=== PATIENT | female | born 1935 | race Caucasian/White ===

== ENCOUNTER 2018-08-09 13:05 | Inpatient (IN) | payer MEDICARE, OTHER, MEDICAID ==
[~2018-08-09] VITALS: Ht 162.6 cm; Wt 63.5 kg
[2018-08-09] MEDS ORDERED: SIMVASTATIN20 MG PO (14:07)
[2018-08-09] MEDS ORDERED: DIGOXIN0.125 MG PO (14:07)
[2018-08-09] MEDS ORDERED: LEVOTHYROXIN75 MCG PO (14:08)
[2018-08-09] MEDS ORDERED: OMEPRAZOLE20 M2 PO (14:08)
[2018-08-09] MEDS ORDERED: CALCIUM + D PO (14:09)
[2018-08-09] MEDS ORDERED: MULTI VIT PO (14:09)
[2018-08-09] MEDS ORDERED: ASPIRIN81 MG PO (14:09)
[2018-08-09] MEDS ORDERED: VITAMIN C500 MG PO (14:09)
[2018-08-09] MEDS ORDERED: FISH OIL1000 MG PO (14:10)
[2018-08-09] MEDS ORDERED: PRESERVISION ARED1 PO (14:10)
[2018-08-09] MEDS ORDERED: METFORMIN500 MG PO (14:11)
[2018-08-13] VITALS (7 sets, daily range): BP systolic 129–144; BP diastolic 61–80
--- NOTE | 2018-08-13 14:13 | NUR ---
PT TRANSPORTED TO [facility] VIA STRETCHER ACCOMPIANED BY OR STAFF. VS DONE. PT ASSESSMENT COMPLETE. PT VERY DROWSY AT THIS TIME. RESP EVEN AND UNLABORED. LUNG SOUNDS CLEAR. O2 @2L ON PT. INCENTIVE SPIROMETER AT BEDSIDE. BOWEL SOUNDS ACTIVE X4. STRONG RADIAL AND PEDAL PULSES. #20 LH LR @100. SITE APPEARS HEALTHY. RT SHOULDER POST OP. DRESSING,CDI. SWELLING TO RT SHOULDER NOTED. ICE APPLIED. PT DENIES ANY PAIN OR NEEDS. POC DISCUSSED. SAFETY PRECAUTIONS IN PLACE. CALL LIGHT IN REACH. WILL CONTINUE TO MONITOR
--- NOTE | 2018-08-13 16:04 | NUR ---
PT SLEEPING IN BED. RESP EVEN AND UNLABORED. O2@2L ON PT. PT DENIES ANY PAIN JUST WANTING TO REST AT THIS TIME. SLING TO RT ARM IN PLACE. CALL LIGHT IN REACH. WILL CONTINUE TO MONITOR
--- NOTE | 2018-08-13 20:00 | NUR ---
PATIENT RESTING IN BED WITH HOB ELEVATED AND O2 VIA NASAL CNNULA IN PLACE AT 2LPM. PATIENT IS AWAKE ALERT AND ORIENTEDX3 AT THIS TIME. PATIENT WITH OCC NON-PRODUCTIVE COUGH. DRESSING TO RIGHT SHOULDER IS CDI WITH RIGHT ARM IN SLING. CMS TO RIGHT FINGERS ARE WNL. MEDICATED FOR PAIN WITH PERCOCET 10/325MG ORDERED. ANCEF HUNG SCHEDULED. IVF LR PATENT AND TO INFUSE AT 100CC/HR. PATIENT IS ONLY TAKING SIPS OF PO FLUIDS AT THIS TIME. IV SITE TO LEFT HAND INTACT AND APPEARS HEALTHY WITH GOOD BLOOD RETURN. SITE REDRESSED AND J-LOOP APPLIED. DILSHAD SCD'S IN PLACE. ATTEMPT TO INSTRUCT PATIENT WITH USE OF IS-POOR EFFORT. WILL NEED REINFORCEMENT. SAFETY PRECAUTIONS REINFORCED. BED ALARM IN PLACE FOR PATIENT SAFETY. ICE PACK TO RIGHT SHOULDER IN [PLACE. CALL LIGHT IN REACH. WILL CONT TO MONITOR.
--- NOTE | 2018-08-14 | NUR ---
PATIENT RESTING IN BED AT THIS TIME WITH HOB ELEVATED AND O2 VIA NASAL CANNULA IN PLACE. EYES CLOSED AND RESP ARE EVEN AND UNLABORED. OCC NON-PRODUCTIVE COUGH. IVF PATENT AND INFUSING VIA LEFT HAND SITE AT 100CC/HR. CALL LIGHT IN REACH. WILL CONT TO MONITOR.
[2018-08-14 00:25] VITALS: BP 125/66
[2018-08-14 04:00] VITALS: BP 127/58
--- NOTE | 2018-08-14 04:38 | NUR ---
APPEARS SLEEPING WITH O2 VIA NASAL CANNULA IN PLACE. IVF D/ALHAJI AND IV SITE SALINE LOCKED. RIGHT SHOULDER DRESSING IS CDI AT THIS TIME WITH SLING IN PLACE TO RIGHT ARM. BED ALARM IN PLACE FOR PATIENT SAFETY. CALL LIGHT IN REACH. WILL CONT TO MONITOR.
[2018-08-14 05:23] LABS: IMMATURE GRANULOCYTES 0.6 % (0.0-5.0); MEAN CELL VOLUME 96.5 fL CALC (80.0-100.0); MEAN CORPUSCULAR HGB 31.7 pG CALC (26.0-32.0); MEAN CORPUSCULAR HGB CONC 32.9 g/L CALC (32.0-36.0); NEUT# 8.96 thou/uL (2.00-7.15); RED BLOOD COUNT 3.72 mill/uL (4.20-5.60); RED CELL DISTRI WIDTH 12.8 % (11.5-15.5)
[2018-08-14 05:29] LABS: HEMATOCRIT 35.9 % (37.0-47.0); HEMOGLOBIN 11.8 g/dl (12.0-16.0)
[2018-08-14 05:50] LABS: ALKALINE PHOSPHATASE 40 u/l (38-126); ANION GAP 11 (6-22 (CALC)); BILIRUBIN, TOTAL 0.5 mg/dL (0.0-1.4); BUN 11 mg/dL (8-23); BUN/CREATININE RATIO 21 (12-20 (CALC)); CARBON DIOXIDE 26 mmol/l (22-30); CHLORIDE 106 mmol/l (95-108); CREATININE 0.5 mg/dL (0.5-1.0); GFR > 60 ML/MIN (>=60 (CALC)); GFR FOR AFR.AMER. > 60 ML/MIN (>=60 (CALC)); MAGNESIUM 1.8 mg/dL (1.6-2.3); POTASSIUM 4.4 mmol/l (3.5-5.1); SGOT/AST 27 u/l (9-36); SODIUM 138 mmol/l (137-146); TOTAL PROTEIN 6.1 g/dL (6.3-8.2)
[2018-08-14 05:51] LABS: ALBUMIN 3.3 g/dL (3.2-5.0)
--- NOTE | 2018-08-14 07:05 | NUR ---
PT REPORT RECIEVED FROM JUD MILLER. PT ON BSC AT THIS TIME. AIDE BY BEDSIDE. CALL LIGHT IN REACH. WILL CONTINUE TO MONITOR.
[2018-08-14 07:45] VITALS: BP 102/60
--- NOTE | 2018-08-14 07:45 | NUR ---
ASSESSMENT COMPLETE. PT APPEARS DROWSY, BUT A/O X3. SPEECH IS CLEAR, VOICE RASPY. RESP EVEN AND UNLABORED. LUNG SOUNDS CLEAR. O2 @2L ON PT. ENCOURAGED USE OF INCENTIVE SPIROMETER. WILL CONTINUE TO REIFORCE. BOWEL SOUNDS ACTIVE X4. STRONG RADIAL AND PEDAL PULSES. #20 LH LR @100. SITE APPEARS HEALTHY. PT POST OP DAY 1 RT SHOULDER. DRESSING,CDI. SLING IN PLACE. SWELLING NOTED TO RT SHOULDER. ICE APPLIED. PT C/O ACHING PAIN TO RT SHOULDER 10 OUT OF 10 ON PIN SCALE. MEDICATION ADMINISTRATION AND PAIN SCALE MONITORING DISCUSSED. PT STATES UNDERSTANDING BUT INTRANET DEVELOPER WILL REINFORCE NEEDED. MEDICATED W/ TWO 325 PERCOCET PO. PT DENIES ANY FURTHER NEEDS. POC DISCUSSED. SAFETY PRECAUTIONS IN PLACE. CALL LIGHT IN REACH. WILL CONTINUE TO MONITOR.
--- NOTE | 2018-08-14 10:10 | NUR ---
DR. RICO IN TO SEE PT
[2018-08-14 11:24] VITALS: BP 106/61
--- NOTE | 2018-08-14 11:26 | NUR ---
DR. RICO IN TO SEE PT
--- NOTE | 2018-08-14 12:34 | NUR ---
PT SITTING IN RECLINER EATING LUNCH. NO C/O PAIN. RESP EVEN AND UNLABORED. SLING TO RT SHOULDER IN PLACE. CALL LIGHT IN REACH. WILL CONTINUE TO MONITOR
--- NOTE | 2018-08-14 13:45 | NUR ---
PT ASSESSMENT WAS ATTEMPTED TODAY. HOWEVER, PT FIRMLY DECLINED STATING THAT SHE WOULD NOT DO ANYTHING AND THAT SHE WANTED TO BE PLACED IN A REHAB. EXPLAINED TO PT THE NEED TO COMPLETE THE EVALUATION FOR HER PLACEMENT, STILL REFUSED TO COOPERATE.
--- NOTE | 2018-08-14 14:10 | NUR ---
Spoke to patient about medications, patient had no questions
--- NOTE | 2018-08-14 15:04 | NUR ---
PT C/O ACHING RT SHOULDER PAIN 10 OUT OF 10 ON PAIN SCALE. MEDICATED W/ TWO PERCOCET PO. ENCOURAGED PO FLUIDS. PT DRINK HALF A CUP OF WATER. PT DEMONSTARTED USE OF THE INCENTIVE SPIROMETER. USAGE OF INCENTIVE SPIROMETER IS GETTING BETTER. PT FALLING BACK TO SLEEP. CALL LIGHT IN REACH. WILL CONTINUE TO MONITOR
--- NOTE | 2018-08-14 15:39 | NUR ---
PT RESTING IN BED, PT STATES PAIN HAS DECREASED TO A 4 OUT OF 10 ON PAIN SCALE. ICE APPLIED TO RT SHOULDER. PT FALS BACK ASLEEP. RESP EVEN AND UNLABORED. CALL LIGHT IN REACH. WILL CONTINUE TO MONITOR.
[2018-08-14 15:41] VITALS: BP 100/61
[2018-08-14 18:58] VITALS: BP 115/67
--- NOTE | 2018-08-14 19:45 | NUR ---
PATIENT RESTING IN BED WITH HOB ELEVATED AND O2 VIA NASAL CANNULA IN PLACE. PATIENT IS AWAKE ALERT AND ORIENTEDX3 BUT SEEMS A LITTLE SLOW ON THE RESPONCES IV SITE TO LEFT HAND INTACT AND APPEARS HEALTHY AT THIS TIME. ICE PACK TO RIGHT SHOULDER-CMS TO RIGHT FINGERS WNL. ENCOURAGE USE OF IS BUT PATIENT CONT TO HAVE POOR EFFORT EVEN WITH CONSTANT QUES. LUNGS ARE CLEAR BUT DIMINISHED-SHALLOW BREATHING. ENCOURAGED PO FLUIDS BUT ONLY TAKING SIPS WHEN OFFERED. SAFETY PRECAUTIONS REINFORCED. CALL LIGHT IN REACH. WILL CONT TO MONITOR.
[2018-08-15 00:09] VITALS: BP 138/76
--- NOTE | 2018-08-15 02:16 | NUR ---
APPEARS SLEEPING AT THIS TIME WITH HOB ELEVATED AND O2 VIA NASAL CANNULA IN PLACE. EYES CLOSED AND RESP ARE EVEN AND UNLABORED. CALL LIGHT IN REACH. WILL CONT TO MONITOR.
[2018-08-15 04:46] VITALS: BP 124/76
--- NOTE | 2018-08-15 04:52 | NUR ---
PATIENT MAX ASSIST TO BSC TO VOID 200CC OF YESENIA URINE. MAX ASSIST BACK TO BED. O2 VIA NASAL CANNULA IN PLACE. INCISION LINE TO RIGHT SHOULDER INTACT AND WELL APPROXIMATED-NO DRAINAGE, SLIGHT SWELLING ONLY. DERMABOND INTACT. CMS TO RIGHT FINGERS WNL. PATIENT APPEARS TO BE HAVING SOME WORD FINDING DIFFICULTY. HAND GRASP ARE WEAK DILSHAD. TAKING ONLY SIPS OF FLUIDS THROUGH THE NIGHT. SAFETY PRECAUTIONS REINFORCED. CALL LIGHT IN REACH. WILL CONT TO MONITOR
[2018-08-15 05:06] LABS: HEMATOCRIT 35.9 % (37.0-47.0); HEMOGLOBIN 11.7 g/dl (12.0-16.0); IMMATURE GRANULOCYTES 0.4 % (0.0-5.0); MEAN CORPUSCULAR HGB 31.6 pG CALC (26.0-32.0); MEAN CORPUSCULAR HGB CONC 32.6 g/L CALC (32.0-36.0); NEUT# 8.88 thou/uL (2.00-7.15); RED BLOOD COUNT 3.7 mill/uL (4.20-5.60); RED CELL DISTRI WIDTH 12.8 % (11.5-15.5)
[2018-08-15 05:24] LABS: ALBUMIN 3.3 g/dL (3.2-5.0); ALKALINE PHOSPHATASE 51 u/l (38-126); ANION GAP 11 (6-22 (CALC)); BILIRUBIN, TOTAL 0.7 mg/dL (0.0-1.4); BUN 12 mg/dL (8-23); BUN/CREATININE RATIO 24 (12-20 (CALC)); CARBON DIOXIDE 28 mmol/l (22-30); CHLORIDE 103 mmol/l (95-108); CREATININE 0.5 mg/dL (0.5-1.0); GFR > 60 ML/MIN (>=60 (CALC)); GFR FOR AFR.AMER. > 60 ML/MIN (>=60 (CALC)); POTASSIUM 4.6 mmol/l (3.5-5.1); SGOT/AST 45 u/l (9-36); SODIUM 137 mmol/l (137-146); TOTAL PROTEIN 6.2 g/dL (6.3-8.2)
--- NOTE | 2018-08-15 07:00 | NUR ---
SHIFT CHANGE REPORT FROM ZHEN, PT AWAKE AND ALERT, VERY SLOW IN RESPONDING TO QUESTIONS, UNABLE TO RATE PAIN LEVEL ON 1-10 SCALE BUT STATES "IT HURTS A LITTLE", ABLE TO STATE MONTH AND DATE OF BUT NOT YEAR. NEEDS MUCH CUEING AND ASSISTANCE FOR MEALS SHE CONTINUOUSLY PUTS AN EMPTY FORK IN HER MOUTH AND CHEWS IF THERE IS FOOD IN HER MOUTH WHEN THERE IS ACTUALLY NONE, UNABLE TO FILL FORK/SPOON WITHOUT HELP, WILL CONTINUE TO MONITOR.
--- NOTE | 2018-08-15 07:10 | NUR ---
REPORT RECEIVED FROM JUD FONTAINE; PT LAYING IN BED AWAKE, BUT SLOW TO RESPOND TO QUESTIONS; RESP EVEN AND UNLABORED.
[2018-08-15 08:58] VITALS: BP 126/76
--- NOTE | 2018-08-15 10:38 | NUR ---
PT AT IN ROOM TO WORK WITH PT.
--- NOTE | 2018-08-15 11:03 | NUR ---
PT LAYING AWAKE IN BED; PT A/O X3; PT VERY SLOW TO RESPOND TO QUESTIONS; RESP EVEN AND UNLABORED; LUNGS CLEAR; 02 AT 2L NC; EYES SLUGGISH; RADIAL AND PEDAL PULSES STRONG; ABD FIRM, HYPOACTIVE BS; R SHOULDER DRESSING INTACT, WARM TO TOUCH, SLIGHTLY SWOLLEN; #20LH FLUSHED FREELY, SITE APPEARS HEALTHY; R SHOULDER ELEVATED ON A PILLOW; SAFETY PRECAUTION REINFORCED; WILL CONTINUE TO MONITOR.
--- NOTE | 2018-08-15 12:04 | NUR ---
PT LAYING IN BED AWAKE, WITH HOB ELEVATED, TRYING TO EAT LUNCH; NO ACUTE CHANGE NOTED; O2 REMAIN IN PLACE; SAFETY PRECAUTION REINFORCED. WILL CONTINUE TO MONITOR.
--- NOTE | 2018-08-15 12:44 | NUR ---
DR CORTES AT BEDSIDE TO DISCUSS POC.
[2018-08-15 16:00] VITALS: BP 141/83
--- NOTE | 2018-08-15 16:17 | NUR ---
PT REMAINS IN BED, FAMILY MEMBERS AT BEDSIDE; NO ACUTE CHANGES IN CONDITION; RESP EVEN AND UNLABORED; PT VOICED NO CONCERNS; VITALS STABLE; WILL CONTINUE TO MONITOR.
--- NOTE | 2018-08-15 17:50 | NUR ---
MEDICATED WITH 1 PERCOCET FOR PAIN 7/10 IN SHOULDER; PT SITTING UP IN BED TRYING TO EAT SUPPER.
[2018-08-15 18:43] VITALS: BP 135/78
--- NOTE | 2018-08-15 19:54 | NUR ---
PATIENT SITTING UP IN BED WITH EYES CLOSED AND O2 VIA NASAL CANNULA IN PLACE. APPEARS SLEEPING. RESP ARE EVEN AND UNLABORED. IV SITE TO LEFT HAND IS INTACT AND APPEARS HEALTHY AT THIS TIME. RIGHT SHOULDER INCISION IS INTACT AND WELL APPROXIMATED-NO DRAINAGE NOTED. APPEARS HEALTHY WITH ONLY SLIGHT SWELLING. BED ALARM IN PLACE FOR PATIENT SAFETY. CALL LIGHT IN REACH. WILL CONT TO MONITOR.
--- NOTE | 2018-08-16 | NUR ---
PATIENT APPEARS SLEEPING AT THIS TIME WITH HOB ELEVATED AND EYES CLOSED. RESP ARE EVEN AND UNLABORED. O2 VIA NASAL CANNULA IN PLACE. CALL LIGHT IN REACH. WILL CONT TO MONITOR.
[2018-08-16 00:10] VITALS: BP 135/84
[2018-08-16 03:51] VITALS: BP 132/78
[2018-08-16 05:12] LABS: HEMATOCRIT 35.6 % (37.0-47.0); HEMOGLOBIN 11.6 g/dl (12.0-16.0); IMMATURE GRANULOCYTES 0.6 % (0.0-5.0); MEAN CELL VOLUME 96.7 fL CALC (80.0-100.0); MEAN CORPUSCULAR HGB 31.5 pG CALC (26.0-32.0); MEAN CORPUSCULAR HGB CONC 32.6 g/L CALC (32.0-36.0); NEUT# 7.46 thou/uL (2.00-7.15); RED BLOOD COUNT 3.68 mill/uL (4.20-5.60); RED CELL DISTRI WIDTH 12.7 % (11.5-15.5)
--- NOTE | 2018-08-16 05:21 | NUR ---
PATIENT VOIDING DARK YESENIA URINE ON BEDPAN-REFUSING TO GET OOB TO THE BSC. C/O RIGHT SHOULDER PAIN. MEDICATED WITH PERCOCET 10/325MG PO FOR PAIN. SAFETY PRECAUTIONS REINFORCED. CALL LIGHT IN REACH. WILL CONT TO MONITOR.
[2018-08-16 05:27] LABS: ALBUMIN 3.2 g/dL (3.2-5.0); ALKALINE PHOSPHATASE 60 u/l (38-126); ANION GAP 11 (6-22 (CALC)); BILIRUBIN, TOTAL 0.7 mg/dL (0.0-1.4); BUN 13 mg/dL (8-23); BUN/CREATININE RATIO 27 (12-20 (CALC)); CARBON DIOXIDE 29 mmol/l (22-30); CHLORIDE 101 mmol/l (95-108); CREATININE 0.5 mg/dL (0.5-1.0); GFR > 60 ML/MIN (>=60 (CALC)); GFR FOR AFR.AMER. > 60 ML/MIN (>=60 (CALC)); POTASSIUM 4.5 mmol/l (3.5-5.1); SGOT/AST 49 u/l (9-36); SODIUM 136 mmol/l (137-146); TOTAL PROTEIN 6.2 g/dL (6.3-8.2)
--- NOTE | 2018-08-16 07:21 | NUR ---
REPORT RECEIVED FROM JUD FONTAINE. PT SITTING UPRIGHT IN BED. SLEEPING. CALL LIGHT WITHIN REACH. BED ALARM SET FOR SAFETY. WILL CONTINUE TO MONITOR.
[2018-08-16 07:55] VITALS: BP 140/68
--- NOTE | 2018-08-16 08:38 | NUR ---
PT SITTING UPRIGHT IN BED. DENIES PAIN. REPORTING OF CONCERNS ENCOURAGED. PAIN MEDICATION SCHEDULE REVIEWED. FALL PRECAUTIONS AND ACTIVITY LEVEL REVIEWED. PLAN OF CARE DISCUSSED. CALL LIGHT REVIEWED AND IN REACH. PT STATES UNDERSTANDING OF INFORMATION. ASSESSMENT COMPLETED. PT. AAOX3. INCISION TO RIGHT SHOULDER, DERMABOND INTACT, NO DRAINAGE, NO REDNESS/SWELLING. BREATHING SHALLOW, IS USE ENCORUAGED.
[2018-08-16 10:18] LABS: URINE BILIRUBIN - DIPSTICK NEGATIVE (NEGATIVE); URINE BLOOD DIPSTICK NEGATIVE (NEGATIVE); URINE CLARITY CLEAR; URINE COLOR DK. YELLOW; URINE GLUCOSE - DIPSTICK NEGATIVE (NEGATIVE); URINE KETONE TRACE mg/dL (NEGATIVE); URINE LEUK ESTERASE NEGATIVE (NEGATIVE); URINE NITRITE - DIPSTICK NEGATIVE (Negative); URINE PH 5.5 (4.5-8.0); URINE PROTEIN - DIPSTICK TRACE mg/dL (NEG-TRACE); URINE SPECIFIC GRAVITY >=1.030; URINE UROBILINOGEN - DIPSTICK 0.2 E.U./dL (0.2)
--- NOTE | 2018-08-16 10:23 | NUR ---
ALTON ESCALANTE IN TO SEE PT. AT THIS TIME.
--- NOTE | 2018-08-16 12:21 | NUR ---
DR. MARTIN IN TO SEE PT. AT THIS TIME.
[2018-08-16 15:45] VITALS: BP 116/64
--- NOTE | 2018-08-16 16:44 | NUR ---
SITTING UPRIGHT IN BED. DENIES PAIN. CALL LIGHT WITHIN REACH. BED ALARM SET.
[2018-08-16 19:00] VITALS: BP 137/66
--- NOTE | 2018-08-16 19:00 | NUR ---
BEDSIDE REPORT RECEIVED FROM JUD DELEON. PT SITTING UP IN RECLINER WITH EYES CLOSED; AWAKENS TO VERBAL STIMULI; ALERT AND ORIENTED; HESITANT TO ANSWER QUESTIONS. DENIES PAIN. RESPIRATIONS EVEN AND UNLABORED ON ROOM AIR. PLAN OF CARE REVIEWED. PT ENCOURAGED TO VERBALIZE CONCERNS. STATES UNDERSTANDING. SAFETY MEASURES IN PLACE. CALL LIGHT WITHIN REACH.
--- NOTE | 2018-08-16 20:01 | NUR ---
PT TRANSFERRED TO BED X 3 PERSON ASSIST; BEARED SOME WEIGHT, BUT DOES NOT MOVE HER LEGS. POSITIONED WITH PILLOWS. RIGHT SHOULER AND ARM HAS SOME SWELLING; ELEVATED ON PILLOW; DERMABOND INTACT AND INCISION APPEARS HEALTHY. SCD'S PLACED ON AND IS ENCOURAGED. PT HAS NO REQUESTS AT THIS TIME. REVIEWED CALL LIGHT AND IS WITHIN REACH.
--- NOTE | 2018-08-17 | NUR ---
PT ASLEEP AT THIS TIME WITH NO SIGNS OF DISTRESS. RESPIRATIONS EVEN AND UNLABORED ON ROOM AIR. IV FLUIDS INFUSING WITHOUT DIFFICULTY; IV SITE APPEARS HEALTHY. AWAKENED FOR VS AND LAB DRAW. NO REQUESTS OR CONCERNS AT THIS TIME. INDEPENDENT IN ROOM. SAFETY MEASURES IN PLACE. CALL LIGHT WITHIN REACH.
--- NOTE | 2018-08-17 00:39 | NUR ---
PT ASLEEP AT THIS TIME WITH NO SIGNS OF DISTRESS. RESPIRATIONS EVEN AND UNLABORED ON ROOM AIR. IV FLUIDS INFUSING WITHOUT DIFFICULTY; IV SITE APPEARS HEALTHY. AWAKENED FOR VS AND LAB DRAW. NO REQUESTS OR CONCERNS AT THIS TIME. CALL LIGHT WITHIN REACH.
--- NOTE | 2018-08-17 00:41 | NUR ---
PT ASLEEP AT THIS TIME WITH NO SIGNS OF DISTRESS. RESPIRATIONS EVEN AND UNLABORED ON ROOM AIR. IV SITE APPEARS HEALTHY AND FLUSHES. PERCOCET GIVEN AT HS FOR MILD PAIN TO RIGHT SHOULDER. NO OTHER REQUESTS OR CONCERNS. SAFETY MEASURES IN PLACE. CALL LIGHT WITHIN REACH.
--- NOTE | 2018-08-17 04:29 | NUR ---
NO ACUTE CHANGES IN CONDITION THROUGHOUT THE NIGHT. PT REMAINS A MAX ASSIST TO BSC. SAFETY MEASURES IN PLACE INCLUDING BED ALARM. CALL LIGHT WITHIN REACH.
[2018-08-17 04:54] VITALS: BP 132/67
[2018-08-17 05:10] LABS: HEMATOCRIT 34.3 % (37.0-47.0); HEMOGLOBIN 11.3 g/dl (12.0-16.0); MEAN CORPUSCULAR HGB 31.3 pG CALC (26.0-32.0); MEAN CORPUSCULAR HGB CONC 32.9 g/L CALC (32.0-36.0); RED BLOOD COUNT 3.61 mill/uL (4.20-5.60); RED CELL DISTRI WIDTH 12.4 % (11.5-15.5)
[2018-08-17 05:22] LABS: ANION GAP 10 (6-22 (CALC)); BUN 17 mg/dL (8-23); BUN/CREATININE RATIO 35 (12-20 (CALC)); CARBON DIOXIDE 29 mmol/l (22-30); CHLORIDE 101 mmol/l (95-108); CREATININE 0.5 mg/dL (0.5-1.0); GFR > 60 ML/MIN (>=60 (CALC)); GFR FOR AFR.AMER. > 60 ML/MIN (>=60 (CALC)); MAGNESIUM 2.1 mg/dL (1.6-2.3); POTASSIUM 4.6 mmol/l (3.5-5.1); SODIUM 135 mmol/l (137-146)
[2018-08-17 05:28] LABS: DIGOXIN 0.5 ng/mL (0.8-2.0)
--- NOTE | 2018-08-17 07:38 | NUR ---
SHIFT CHANGE REPORT FROM EDDI, PT IN BED WITH EYES CLOSED, RESPONDS TO VERBAL STIMULI BUT VERY SLOW TO RESPOND, DESCRIBES PAIN "LITTLE BIT", SWELLING TO RIGHT SURGICAL ARM OBSERVED AND ARM ELEVATED ON PILLOW, CALL MONDRAGON IN REACH, WILL CONTINUE TO MONITOR.
[2018-08-17 08:39] VITALS: BP 142/68
[2018-08-17 11:56] VITALS: BP 123/76
--- NOTE | 2018-08-17 12:20 | NUR ---
Patient seen for gait and functional activities. Patient spoke minimally but appropriately. Was cooperative. Has difficulty raising either arm and states the right arm is painful. Max assist of one required for sit to and from stand transfers. She is able to stand with a flexed knee posture and mod assist and continual verbal cuing. She assisted with pivoting by shuffling her feet in the direction indicated. She is able to support approx 50% of her own wgt in standing. Practiced chair mobility. She is able to slide back in the chair with cuing and mod assist of one. She was left comfortable in the chair with the call light and tray table within reach.
--- NOTE | 2018-08-17 12:22 | NUR ---
MUCH MORE ALERT AND ORIENTED TODAY, MAX ASSIST OF 3 STAFF TO TRANSFER FROM BED TO COMMODE TO CHAIR, PAIN TO RIGHT SHOULDER CONTROLLED WITH ANALGESICS, SITTING UP IN RECLINER AT THIS TIME, CALL MONDRAGON IN REACH.
[2018-08-17] MEDS ORDERED: PERCOCET 10/31 COMBO PO (13:14)
[2018-08-17] MEDS ORDERED: SURFAK240 MG/CAP PO (13:26)
--- NOTE | 2018-08-17 13:45 | NUR ---
REPORT CALLED TO DEANA LEUNG) AT THE REHAB.
--- NOTE | 2018-08-17 14:58 | NUR ---
Discharge instructions given. Patient verbalizes understanding of same. Discharged in stable condition via Wheelchair to [facility] with *Other. All belongings sent with pt.
== END 2018-08-17 14:50 | DRG 483 ==
LOC: MS2 08-13 08:46 → MSOBS 08-13 13:45 → MS2 08-13 13:45
PROVIDERS: Internal Medicine Nephrology; Nurse Practitioner Family; ADMIT Orthopaedic Surgery; ATTEND Internal Medicine
PROC: 0RRJ00Z Replacement of Right Shoulder Joint with Reverse Ball and Socket Synthetic Substitute, Open Approach (ICD-10-PCS; principal; 2018-08-13)
PROC: 0LS30ZZ Reposition Right Upper Arm Tendon, Open Approach (ICD-10-PCS; 2018-08-13)
PROC: 3E0T3BZ Introduction of Anesthetic Agent into Peripheral Nerves and Plexi, Percutaneous Approach (ICD-10-PCS; 2018-08-13)
DX: M19.011 Primary osteoarthritis, right shoulder (principal); G93.41 Metabolic encephalopathy; M75.121 Complete rotator cuff tear or rupture of right shoulder, not specified as traumatic; S46.211A Strain of muscle, fascia and tendon of other parts of biceps, right arm, initial encounter; I11.9 Hypertensive heart disease without heart failure; I95.9 Hypotension, unspecified; E11.9 Type 2 diabetes mellitus without complications; E78.5 Hyperlipidemia, unspecified; E03.9 Hypothyroidism, unspecified; H35.30 Unspecified macular degeneration; X58.XXXA Exposure to other specified factors, initial encounter; Z79.84 Long term (current) use of oral hypoglycemic drugs; K59.09 Other constipation
CPT/HCPCS: J1650; J2710

== ENCOUNTER 2018-10-04 18:44 | Emergency (ER) | payer MEDICARE, OTHER, MEDICAID ==
[~2018-10-04] VITALS: Ht 162.6 cm; Wt 66.0 kg
[~2018-10-04 18:44] MED LIST: ASPIRIN81 MG PO; CALCIUM + D PO; DIGOXIN0.125 MG PO; FISH OIL1000 MG PO; LEVOTHYROXIN75 MCG PO; METFORMIN500 MG PO; MULTI VIT PO; OMEPRAZOLE20 M2 PO; PERCOCET 10/31 COMBO PO; PRESERVISION ARED1 PO; SIMVASTATIN20 MG PO; SURFAK240 MG/CAP PO; VITAMIN C500 MG PO
[2018-10-04 19:54] VITALS: BP 139/81
== END 2018-10-04 19:54 | disposition home or self-care (01) ==
LOC: ED 18:44
PROC: 0HQ1XZZ Repair Face Skin, External Approach (ICD-10-PCS; principal; 2018-10-04)
DX: S01.112A Laceration without foreign body of left eyelid and periocular area, initial encounter (principal); E11.9 Type 2 diabetes mellitus without complications; W01.0XXA Fall on same level from slipping, tripping and stumbling without subsequent striking against object, initial encounter

== ENCOUNTER 2019-02-13 07:46 | Day surgery (SDC) | payer MEDICARE, OTHER, MEDICAID ==
[~2019-02-13] VITALS: Ht 162.6 cm; Wt 63.5 kg
[~2019-02-13 07:46] MED LIST changes: +LASIX 40 MG40 MG/TAB PO; +VITAMIN C500 M6 PO
[2019-02-13 09:16] VITALS: BP 134/66
== END 2019-02-13 09:34 | disposition home or self-care (01) ==
LOC: ENDO 07:46
PROVIDERS: ATTEND Surgery
PROC: 0DJD8ZZ Inspection of Lower Intestinal Tract, Via Natural or Artificial Opening Endoscopic (ICD-10-PCS; principal; 2019-02-13)
DX: R19.5 Other fecal abnormalities (principal); E11.9 Type 2 diabetes mellitus without complications; E03.9 Hypothyroidism, unspecified; I50.9 Heart failure, unspecified

== ENCOUNTER 2019-09-19 10:21 | Inpatient (IN) | payer MEDICARE, MEDICAID ==
[2019-09-19] VITALS (12 sets, daily range): BP systolic 97–161; BP diastolic 54–85
[~2019-09-19] VITALS: Ht 162.6 cm; Wt 67.2 kg
[2019-09-19 12:53] LABS: HEMATOCRIT 39.2 % (37.0-47.0); HEMOGLOBIN 12.8 g/dl (12.0-16.0); IMMATURE GRANULOCYTES 0.5 % (0.0-5.0); MEAN CELL VOLUME 92.5 fL CALC (80.0-100.0); MEAN CORPUSCULAR HGB 30.2 pG CALC (26.0-32.0); MEAN CORPUSCULAR HGB CONC 32.7 g/L CALC (32.0-36.0); NEUT# 3.02 thou/uL (2.00-7.15); RED BLOOD COUNT 4.24 mill/uL (4.20-5.60); RED CELL DISTRI WIDTH 12.9 % (11.5-15.5)
[2019-09-19 13:13] LABS: PROTHROMBIN TIME 10.8 SECONDS (9.0-12.5)
[2019-09-19 13:19] LABS: ALKALINE PHOSPHATASE 58 u/l (38-126); ANION GAP 16 (6-22 (CALC)); BILIRUBIN, TOTAL 0.5 mg/dL (0.0-1.4); BUN 12 mg/dL (8-23); BUN/CREATININE RATIO 24 (12-20 (CALC)); CARBON DIOXIDE 26 mmol/l (22-30); CHLORIDE 100 mmol/l (95-108); CREATININE 0.5 mg/dL (0.5-1.0); GFR > 60 ML/MIN (>=60 (CALC)); GFR FOR AFR.AMER. > 60 ML/MIN (>=60 (CALC)); POTASSIUM 4.2 mmol/l (3.5-5.1); SGOT/AST 24 u/l (9-36); SODIUM 137 mmol/l (137-146)
[2019-09-19 13:26] LABS: ALBUMIN 4.5 g/dL (3.2-5.0); TOTAL PROTEIN 8.2 g/dL (6.3-8.2)
[2019-09-19] MEDS ORDERED: METFORMIN500 MG PO (17:43)
[2019-09-19] MEDS ORDERED: PRESERVISION AREDS 2 PO (17:45)
[2019-09-19 19:33] LABS: URINE BILIRUBIN - DIPSTICK NEGATIVE (NEGATIVE); URINE BLOOD DIPSTICK NEGATIVE (NEGATIVE); URINE COLOR YELLOW; URINE GLUCOSE - DIPSTICK NEGATIVE (NEGATIVE); URINE KETONE NEGATIVE (NEGATIVE); URINE LEUK ESTERASE NEGATIVE (NEGATIVE); URINE NITRITE - DIPSTICK NEGATIVE (Negative); URINE PH 7.5 (4.5-8.0); URINE PROTEIN - DIPSTICK NEGATIVE (NEG-TRACE); URINE SPECIFIC GRAVITY <=1.005; URINE UROBILINOGEN - DIPSTICK 0.2 E.U./dL (0.2)
[2019-09-19 23:06] LABS: BARBITURATES NEGATIVE (NEGATIVE); COCAINE NEGATIVE (NEGATIVE); METHADONE NEGATIVE (NEGATIVE); OXCYCODONE NEGATIVE (NEGATIVE); TETRAHYDROCANNABIONOL NEGATIVE (NEGATIVE); TRICYLIC ANTIDEPRESSANTS NEGATIVE (NEGATIVE)
[2019-09-20] VITALS (25 sets, daily range): BP systolic 95–143; BP diastolic 46–73
[2019-09-20 05:06] LABS: HEMATOCRIT 40.4 % (37.0-47.0); HEMOGLOBIN 13.3 g/dl (12.0-16.0); MEAN CELL VOLUME 92.2 fL CALC (80.0-100.0); MEAN CORPUSCULAR HGB 30.4 pG CALC (26.0-32.0); MEAN CORPUSCULAR HGB CONC 32.9 g/L CALC (32.0-36.0); RED BLOOD COUNT 4.38 mill/uL (4.20-5.60); RED CELL DISTRI WIDTH 12.9 % (11.5-15.5)
[2019-09-20 05:38] LABS: ANION GAP 12 (6-22 (CALC)); BUN 13 mg/dL (8-23); BUN/CREATININE RATIO 27 (12-20 (CALC)); CARBON DIOXIDE 25 mmol/l (22-30); CHLORIDE 105 mmol/l (95-108); CREATININE 0.5 mg/dL (0.5-1.0); GFR > 60 ML/MIN (>=60 (CALC)); GFR FOR AFR.AMER. > 60 ML/MIN (>=60 (CALC)); SODIUM 138 mmol/l (137-146)
[2019-09-20 06:08] LABS: CHOLESTEROL HDL RATIO 3.5 (<4.4 (CALC))
[2019-09-21] VITALS (19 sets, daily range): BP systolic 104–141; BP diastolic 41–75
[2019-09-22] VITALS (12 sets, daily range): BP systolic 90–153; BP diastolic 44–75
[2019-09-22 05:22] LABS: HEMATOCRIT 37.8 % (37.0-47.0); HEMOGLOBIN 12.2 g/dl (12.0-16.0); MEAN CELL VOLUME 93.3 fL CALC (80.0-100.0); MEAN CORPUSCULAR HGB 30.1 pG CALC (26.0-32.0); MEAN CORPUSCULAR HGB CONC 32.3 g/L CALC (32.0-36.0); RED BLOOD COUNT 4.05 mill/uL (4.20-5.60)
[2019-09-22 05:42] LABS: ANION GAP 11 (6-22 (CALC)); BUN 12 mg/dL (8-23); BUN/CREATININE RATIO 26 (12-20 (CALC)); CARBON DIOXIDE 24 mmol/l (22-30); CHLORIDE 107 mmol/l (95-108); CREATININE 0.5 mg/dL (0.5-1.0); GFR > 60 ML/MIN (>=60 (CALC)); GFR FOR AFR.AMER. > 60 ML/MIN (>=60 (CALC)); POTASSIUM 4.1 mmol/l (3.5-5.1); SODIUM 138 mmol/l (137-146)
[2019-09-23 03:45] VITALS: BP 124/54
[2019-09-23 07:45] VITALS: BP 143/65
[2019-09-23 11:41] VITALS: BP 150/64
== END 2019-09-23 14:53 | disposition home health service (06) | DRG 69 ==
LOC: ED 10:21 → ED-I 11:57 → ED 17:05 → MS2 17:06 → ICU 17:06 → MS2 09-22 22:29
PROVIDERS: Family Medicine; Nurse Practitioner Family; ADMIT Internal Medicine; ATTEND Internal Medicine
DX: G45.9 Transient cerebral ischemic attack, unspecified (principal); I10 Essential (primary) hypertension; E11.9 Type 2 diabetes mellitus without complications; M62.81 Muscle weakness (generalized); I25.10 Atherosclerotic heart disease of native coronary artery without angina pectoris; E03.9 Hypothyroidism, unspecified; E78.5 Hyperlipidemia, unspecified; Z79.84 Long term (current) use of oral hypoglycemic drugs
CPT/HCPCS: J1650

== ENCOUNTER 2019-12-04 | Emergency (ER) | payer MEDICARE, MEDICAID ==
[~2019-12-04] MED LIST changes: +PRESERVISION AREDS 2 PO
[2019-12-04 19:45] LABS: HEMATOCRIT 39.5 % (37.0-47.0); HEMOGLOBIN 12.9 g/dl (12.0-16.0); IMMATURE GRANULOCYTES 0.4 % (0.0-5.0); MEAN CELL VOLUME 92.3 fL CALC (80.0-100.0); MEAN CORPUSCULAR HGB 30.1 pG CALC (26.0-32.0); MEAN CORPUSCULAR HGB CONC 32.7 g/L CALC (32.0-36.0); NEUT# 4.24 thou/uL (2.00-7.15); RED BLOOD COUNT 4.28 mill/uL (4.20-5.60); RED CELL DISTRI WIDTH 13.3 % (11.5-15.5)
[2019-12-04 20:03] LABS: ACT PARTIAL THROMBO TIME 25.4 SECONDS (20.0-32.5); PROTHROMBIN TIME 10.1 SECONDS (9.0-12.5)
[2019-12-04 20:05] LABS: ALBUMIN 4.3 g/dL (3.2-5.0); ALKALINE PHOSPHATASE 57 u/l (38-126); ANION GAP 14 (6-22 (CALC)); BUN 19 mg/dL (8-23); BUN/CREATININE RATIO 40 (12-20 (CALC)); CARBON DIOXIDE 24 mmol/l (22-30); CHLORIDE 107 mmol/l (95-108); CPK 76 u/l (30-165); CREATININE 0.5 mg/dL (0.5-1.0); GFR > 60 ML/MIN (>=60 (CALC)); GFR FOR AFR.AMER. > 60 ML/MIN (>=60 (CALC)); MAGNESIUM 2.1 mg/dL (1.6-2.3); POTASSIUM 4.4 mmol/l (3.5-5.1); SGOT/AST 23 u/l (9-36); SODIUM 140 mmol/l (137-146); TOTAL PROTEIN 7.4 g/dL (6.3-8.2)
[2019-12-04 20:06] LABS: BILIRUBIN, TOTAL 0.1 mg/dL (0.0-1.4); DIGOXIN 0.6 ng/mL (0.8-2.0)
== END 2019-12-04 20:48 | disposition home or self-care (01) ==
PROVIDERS: Family Medicine
DX: S86.912A Strain of unspecified muscle(s) and tendon(s) at lower leg level, left leg, initial encounter (principal); E11.9 Type 2 diabetes mellitus without complications; X58.XXXA Exposure to other specified factors, initial encounter; Z79.4 Long term (current) use of insulin; M79.662 Pain in left lower leg

== ENCOUNTER 2020-01-25 11:27 | Observation (INO) | payer MEDICARE, MEDICAID ==
[~2020-01-25] VITALS: Ht 162.6 cm; Wt 66.7 kg
--- NOTE | 2020-01-25 11:30 | NUR ---
pt to room via wc for triage
--- NOTE | 2020-01-25 11:50 | NUR ---
PT ASSESSED. IN GOWN, MONITORS IN PLACE. PT AO X 3. SKIN PINK WARM AND DRY. MVS INTACT DISTAL TO RIGHT SHOULDER. PT REPORTS PAIN WITH SHOULDER MOVEMENT.
--- NOTE | 2020-01-25 12:37 | NUR ---
PT TO CT VIA STRETCHER
[2020-01-25 12:48] LABS: HEMATOCRIT 37.5 % (37.0-47.0); HEMOGLOBIN 12.4 g/dl (12.0-16.0); IMMATURE GRANULOCYTES 0.5 % (0.0-5.0); MEAN CELL VOLUME 91.2 fL CALC (80.0-100.0); MEAN CORPUSCULAR HGB 30.2 pG CALC (26.0-32.0); MEAN CORPUSCULAR HGB CONC 33.1 g/dL CAL (32.0-36.0); NEUT# 4.21 thou/uL (2.00-7.15); RED BLOOD COUNT 4.11 mill/uL (4.20-5.60); RED CELL DISTRI WIDTH 13.5 % (11.5-15.5)
--- NOTE | 2020-01-25 12:58 | NUR ---
PT RETURNED FROM CT. MONITORS APPLIED. POSITIONED FOR COMFORT. HOB ELEVATED. CALL MONDRAGON WITHIN REACH.
[2020-01-25 13:10] LABS: ALBUMIN 4.3 g/dL (3.2-5.0); ALKALINE PHOSPHATASE 53 u/l (38-126); ANION GAP 11 (6-22 (CALC)); BUN 19 mg/dL (8-23); BUN/CREATININE RATIO 37 (12-20 (CALC)); CARBON DIOXIDE 25 mmol/l (22-30); CHLORIDE 104 mmol/l (95-108); CREATININE 0.5 mg/dL (0.5-1.0); GFR > 60 ML/MIN (>=60 (CALC)); GFR FOR AFR.AMER. > 60 ML/MIN (>=60 (CALC)); SGOT/AST 31 u/l (9-36); SODIUM 136 mmol/l (137-146); TOTAL PROTEIN 7.7 g/dL (6.3-8.2)
[2020-01-25 13:13] LABS: BILIRUBIN, TOTAL 0.4 mg/dL (0.0-1.4)
--- NOTE | 2020-01-25 14:00 | NUR ---
PT RESTING COMFORTABLY WAITING RESULTS
--- NOTE | 2020-01-25 15:00 | NUR ---
PT AWAITING MED SURG ADMISSION
--- NOTE | 2020-01-25 16:03 | NUR ---
REPORT REC FROM Redd ESPOSITO RN
--- NOTE | 2020-01-25 16:06 | NUR ---
REPORT CALLED TO BEBETO RENNERDEALERSHIP MANAGER
--- NOTE | 2020-01-25 16:13 | NUR ---
PT ARRIVED TO [facility] VIA STRETCHER ACCOMPANIED BY NATALIA RENNER. A&O X3. NO DISTRESS NOTED. PT C/O LT SHOULDER PAIN. ICE PACK PROVIDED TO HELP WITH THE PAIN. PER PT SHE WAS TAKING HER BASKET OF LAUNDRY ON HER WALKER WHEN SHE FELL. DENIES ANY OTHER FALL PRIOR TO TODAY. URINE SPECIMEN COLLECTED. PT REFUSED [facility]. ASSESSMENT COMPLETED. DISCUSSED POC. CALL LIGHT IN REACH. CONTINUE TO MONITOR.
--- NOTE | 2020-01-25 16:15 | NUR ---
PT TAKEN VIA STRETCHER, TELEMETRY IN PLACE TO MED SURG
[2020-01-25 17:14] LABS: URINE BILIRUBIN - DIPSTICK NEGATIVE (NEGATIVE); URINE BLOOD DIPSTICK NEGATIVE (NEGATIVE); URINE COLOR YELLOW; URINE GLUCOSE - DIPSTICK NEGATIVE (NEGATIVE); URINE KETONE NEGATIVE (NEGATIVE); URINE LEUK ESTERASE NEGATIVE (NEGATIVE); URINE NITRITE - DIPSTICK NEGATIVE (Negative); URINE PROTEIN - DIPSTICK NEGATIVE (NEG-TRACE); URINE UROBILINOGEN - DIPSTICK 0.2 E.U./dL (0.2)
--- NOTE | 2020-01-25 19:00 | NUR ---
REPORT FROM HUDSON SRINIVASAN. PT SITTING UP IN BED. ALERT AND ORIENTED. NO APPARENT DISTRESS NOTED. PT STATES MILD PAIN IN RIGHT SHOULDER, ICE PACK IN PLACE, PREVIOUSLY MEDICATED. DISCUSSED POC. PT VERBALIZED UNDERSTANDING. IV SITE APPEARS HEALTHY. SANITARY AIDE IN PLACE. CALL LIGHT WITHIN REACH. WILL CONTINUE TO MONITOR.
[2020-01-25 19:19] VITALS: BP 114/49
--- NOTE | 2020-01-25 23:17 | NUR ---
PT C/O RIGHT SHOULDER PAIN. ENCOURAGED REPOSITIONING. ICE PACK PROVIDED AND PT MEDICATED WITH PO APAP UPON REQUEST. PT DENIES ANY OTHER WANTS OR NEEDS. NO APPARENT DISTRESS NOTED. CALL LIGHT WITHIN REACH. WILL CONTINUE TO MONITOR.
[2020-01-25 23:52] VITALS: BP 115/68
--- NOTE | 2020-01-26 03:35 | NUR ---
PT RESTING IN BED WITH EYES CLOSED. NO APPARENT DISTRESS NOTED. CALL LIGHT WITHIN REACH. WILL CONTINUE TO MONITOR.
[2020-01-26 04:20] VITALS: BP 109/62
[2020-01-26 05:12] LABS: HEMATOCRIT 36.2 % (37.0-47.0); HEMOGLOBIN 11.7 g/dl (12.0-16.0); IMMATURE GRANULOCYTES 0.2 % (0.0-5.0); MEAN CELL VOLUME 92.1 fL CALC (80.0-100.0); MEAN CORPUSCULAR HGB 29.8 pG CALC (26.0-32.0); MEAN CORPUSCULAR HGB CONC 32.3 g/dL CAL (32.0-36.0); NEUT# 2.11 thou/uL (2.00-7.15); RED BLOOD COUNT 3.93 mill/uL (4.20-5.60); RED CELL DISTRI WIDTH 13.6 % (11.5-15.5)
[2020-01-26 05:42] LABS: ANION GAP 9 (6-22 (CALC)); BUN 18 mg/dL (8-23); BUN/CREATININE RATIO 38 (12-20 (CALC)); CARBON DIOXIDE 28 mmol/l (22-30); CHLORIDE 104 mmol/l (95-108); CREATININE 0.5 mg/dL (0.5-1.0); GFR > 60 ML/MIN (>=60 (CALC)); GFR FOR AFR.AMER. > 60 ML/MIN (>=60 (CALC)); MAGNESIUM 2.1 mg/dL (1.6-2.3); POTASSIUM 3.6 mmol/l (3.5-5.1); SODIUM 137 mmol/l (137-146)
[2020-01-26 07:12] VITALS: BP 111/65
--- NOTE | 2020-01-26 07:12 | NUR ---
PT SITTING IN BED WATCHING TV A&O X3. PT DENIES ANY SEVERE PAIN AT THIS TIME AND STATES THAT THE TYLENOL AND ICE PACK HAVE BEEN CONTROLLING HER PAIN. NO OTHER NEEDS AT THIS TIME. ASSESSMENT COMPLETED. DISCUSSED POC. CALL LIGHT IN REACH. CONTINUE TO MONITOR.
[2020-01-26 11:32] VITALS: BP 120/71
--- NOTE | 2020-01-26 14:15 | NUR ---
D/C INSTRUCTIONS GIVEN TO PT. IV INTACT UPON REMOVAL
--- NOTE | 2020-01-26 14:38 | NUR ---
Discharge instructions given. Patient verbalizes understanding of same. Discharged in stable condition via Wheelchair to Home with staff. All belongings sent with pt.
== END 2020-01-26 14:38 | disposition home or self-care (01) ==
LOC: ED 11:27 → ED-I 13:34 → ED 13:56 → ED-I 13:57 → MS2 15:32
PROVIDERS: Family Medicine; ADMIT Internal Medicine; ATTEND Internal Medicine
DX: M25.511 Pain in right shoulder (principal); E11.9 Type 2 diabetes mellitus without complications; E78.5 Hyperlipidemia, unspecified; E03.9 Hypothyroidism, unspecified; W01.0XXA Fall on same level from slipping, tripping and stumbling without subsequent striking against object, initial encounter; Y93.E2 Activity, laundry; Y92.009 Unspecified place in unspecified non-institutional (private) residence as the place of occurrence of the external cause; Z79.84 Long term (current) use of oral hypoglycemic drugs
CPT/HCPCS: G0378; J1650

== ENCOUNTER 2020-10-31 17:28 | Emergency (ER) | payer MEDICARE, MEDICAID ==
[~2020-10-31] VITALS: Ht 157.5 cm; Wt 64.5 kg
[2020-10-31] MEDS ORDERED: VISTARIL25 MG PO (17:44)
[2020-10-31] MEDS ORDERED: ULTRAM50 MG PO ×2 (18:39→18:58)
[2020-10-31 19:10] VITALS: BP 149/72
== END 2020-10-31 19:15 | disposition home or self-care (01) ==
LOC: ED 17:28
DX: M25.511 Pain in right shoulder (principal); E11.9 Type 2 diabetes mellitus without complications; W01.0XXA Fall on same level from slipping, tripping and stumbling without subsequent striking against object, initial encounter; Y92.009 Unspecified place in unspecified non-institutional (private) residence as the place of occurrence of the external cause; Z79.84 Long term (current) use of oral hypoglycemic drugs

== ENCOUNTER 2023-03-03 12:55 | Observation (INO) | payer MEDICARE, MEDICAID ==
[~2023-03-03] VITALS: Ht 157.5 cm; Wt 61.8 kg
[2023-03-03] VITALS (12 sets, daily range): BP systolic 130–161; BP diastolic 57–80
[~2023-03-03 12:55] MED LIST changes: +ULTRAM50 MG PO; +VISTARIL25 MG PO
[2023-03-03 13:54] LABS: BASO% 0.3 % (0-3); HEMATOCRIT 38.4 % (37.0-47.0); HEMOGLOBIN 12.5 g/dl (12.0-16.0); IMMATURE GRANULOCYTES 0.2 % (0.0-5.0); LYMPH% 21.1 % (15-41); MEAN CELL VOLUME 93.4 fL CALC (80.0-100.0); MEAN CORPUSCULAR HGB 30.4 pG CALC (26.0-32.0); MEAN CORPUSCULAR HGB CONC 32.6 g/dL CAL (32.0-36.0); NEUT# 3.46 thou/uL (2.00-7.15); NEUT% 58.4 % (42-76); RED BLOOD COUNT 4.11 mill/uL (4.20-5.60); RED CELL DISTRI WIDTH 13.4 % (11.5-15.5)
[2023-03-03 13:59] LABS: URINE BILIRUBIN - DIPSTICK NEGATIVE (NEGATIVE); URINE BLOOD DIPSTICK NEGATIVE (NEGATIVE); URINE COLOR YELLOW; URINE GLUCOSE - DIPSTICK NEGATIVE (NEGATIVE); URINE KETONE NEGATIVE (NEGATIVE); URINE LEUK ESTERASE NEGATIVE (NEGATIVE); URINE NITRITE - DIPSTICK NEGATIVE (Negative); URINE PH 5.5 (4.5-8.0); URINE PROTEIN - DIPSTICK NEGATIVE (NEG-TRACE); URINE SPECIFIC GRAVITY 1.025; URINE UROBILINOGEN - DIPSTICK 0.2 E.U./dL (0.2)
[2023-03-03 14:09] LABS: PROTHROMBIN TIME 10.4 SECONDS (9.0-12.5)
[2023-03-03 14:11] LABS: ALBUMIN 4.3 g/dL (3.2-5.0); ALKALINE PHOSPHATASE 55 u/l (38-126); ANION GAP 12 (6-22 (CALC)); BILIRUBIN, TOTAL 0.3 mg/dL (0.02-1.3); BUN 13 mg/dL (8-23); BUN/CREATININE RATIO 22 (12-20 (CALC)); CARBON DIOXIDE 27 mmol/l (22-30); CHLORIDE 102 mmol/l (95-108); CREATININE 0.6 mg/dL (0.5-1.0); GFR FOR AFR.AMER. > 60 ML/MIN (>=60 (CALC)); GFR OTHER RACES > 60 ML/MIN (>=60 (CALC)); POTASSIUM 3.4 mmol/l (3.5-5.1); SGOT/AST 35 u/l (9-36); SODIUM 138 mmol/l (137-146); TOTAL PROTEIN 7.5 g/dL (6.3-8.2)
[2023-03-04] VITALS (12 sets, daily range): BP systolic 106–140; BP diastolic 47–63
[2023-03-05] VITALS (9 sets, daily range): BP systolic 106–127; BP diastolic 46–57
[2023-03-05 06:12] LABS: ALBUMIN 3.7 g/dL (3.2-5.0); ALKALINE PHOSPHATASE 49 u/l (38-126); ANION GAP 11 (6-22 (CALC)); BASO% 0.7 % (0-3); BILIRUBIN, TOTAL 0.4 mg/dL (0.02-1.3); BUN 13 mg/dL (8-23); BUN/CREATININE RATIO 24 (12-20 (CALC)); CARBON DIOXIDE 28 mmol/l (22-30); CHLORIDE 102 mmol/l (95-108); CREATININE 0.6 mg/dL (0.5-1.0); EOS% 4.6 % (0-8); GFR FOR AFR.AMER. > 60 ML/MIN (>=60 (CALC)); GFR OTHER RACES > 60 ML/MIN (>=60 (CALC)); HEMATOCRIT 37.6 % (37.0-47.0); HEMOGLOBIN 12.3 g/dl (12.0-16.0); IMMATURE GRANULOCYTES 0.2 % (0.0-5.0); LYMPH% 26.9 % (15-41); MEAN CELL VOLUME 93.5 fL CALC (80.0-100.0); MEAN CORPUSCULAR HGB 30.6 pG CALC (26.0-32.0); MEAN CORPUSCULAR HGB CONC 32.7 g/dL CAL (32.0-36.0); MONO% 16.9 % (2-13); NEUT# 2.34 thou/uL (2.00-7.15); NEUT% 50.7 % (42-76); POTASSIUM 3.5 mmol/l (3.5-5.1); RED BLOOD COUNT 4.02 mill/uL (4.20-5.60); RED CELL DISTRI WIDTH 13.1 % (11.5-15.5); SGOT/AST 26 u/l (9-36); SODIUM 138 mmol/l (137-146); TOTAL PROTEIN 6.5 g/dL (6.3-8.2)
[2023-03-06] VITALS (7 sets, daily range): BP systolic 103–141; BP diastolic 51–64
[2023-03-07 00:01] VITALS: BP 140/64
[2023-03-07 05:02] VITALS: BP 103/46
[2023-03-07 05:15] VITALS: BP 103/46
[2023-03-07 05:26] LABS: BASO% 0.7 % (0-3); EOS% 6.9 % (0-8); HEMATOCRIT 39.3 % (37.0-47.0); HEMOGLOBIN 12.6 g/dl (12.0-16.0); IMMATURE GRANULOCYTES 0.7 % (0.0-5.0); LYMPH% 31.2 % (15-41); MEAN CELL VOLUME 93.6 fL CALC (80.0-100.0); MEAN CORPUSCULAR HGB CONC 32.1 g/dL CAL (32.0-36.0); MONO% 10.5 % (2-13); NEUT# 2.25 thou/uL (2.00-7.15); RED BLOOD COUNT 4.2 mill/uL (4.20-5.60)
[2023-03-07 05:39] LABS: ALKALINE PHOSPHATASE 51 u/l (38-126); ANION GAP 11 (6-22 (CALC)); BUN 11 mg/dL (8-23); BUN/CREATININE RATIO 17 (12-20 (CALC)); CARBON DIOXIDE 27 mmol/l (22-30); CHLORIDE 104 mmol/l (95-108); CREATININE 0.6 mg/dL (0.5-1.0); GFR FOR AFR.AMER. > 60 ML/MIN (>=60 (CALC)); GFR OTHER RACES > 60 ML/MIN (>=60 (CALC)); POTASSIUM 3.4 mmol/l (3.5-5.1); SGOT/AST 27 u/l (9-36); SODIUM 139 mmol/l (137-146); TOTAL PROTEIN 7.1 g/dL (6.3-8.2)
[2023-03-07 05:40] LABS: BILIRUBIN, TOTAL 0.1 mg/dL (0.02-1.3)
[2023-03-07 06:48] VITALS: BP 141/56
[2023-03-07 10:52] VITALS: BP 140/57
== END 2023-03-07 17:00 | disposition home health service (06) ==
LOC: ED 12:55 → MS2 14:45
PROVIDERS: Internal Medicine; Nurse Practitioner; Nurse Practitioner Family; ADMIT Internal Medicine; ATTEND Internal Medicine
DX: R29.810 Facial weakness (principal); R47.81 Slurred speech; I11.0 Hypertensive heart disease with heart failure; I50.9 Heart failure, unspecified; E11.9 Type 2 diabetes mellitus without complications; E78.5 Hyperlipidemia, unspecified; E03.9 Hypothyroidism, unspecified; Z79.84 Long term (current) use of oral hypoglycemic drugs; Z86.73 Personal history of transient ischemic attack (TIA), and cerebral infarction without residual deficits; Z79.02 Long term (current) use of antithrombotics/antiplatelets; Z79.82 Long term (current) use of aspirin

== ENCOUNTER 2024-03-30 16:31 | Emergency (ER) | payer MEDICARE, MEDICAID, OTHER ==
[~2024-03-30] VITALS: Ht 162.6 cm; Wt 68.4 kg
[2024-03-30 17:50] VITALS: BP 148/66
[2024-03-30] MEDS ORDERED: SODIUM CHLORIDE 0.9% 1,000 ML IV ONE (18:10)
[2024-03-30 18:13] LABS: URINE BILIRUBIN - DIPSTICK Negative (NEGATIVE); URINE BLOOD DIPSTICK Negative (NEGATIVE); URINE GLUCOSE - DIPSTICK Negative (NEGATIVE); URINE KETONE Negative (NEGATIVE); URINE LEUK ESTERASE Trace (NEGATIVE); URINE NITRITE - DIPSTICK Negative (Negative); URINE PROTEIN - DIPSTICK Negative (NEG-TRACE); URINE SPECIFIC GRAVITY 1.025; URINE UROBILINOGEN - DIPSTICK 0.2 E.U./dL (0.2)
[2024-03-30 18:14] LABS: URINE COLOR Yellow
[2024-03-30 18:14] LABS: BASO% 0.7 % (0-3); EOS% 3.2 % (0-8); HEMATOCRIT 40.3 % (37.0-47.0); HEMOGLOBIN 12.8 g/dl (12.0-16.0); IMMATURE GRANULOCYTES 0.5 % (0.0-5.0); LYMPH% 25.3 % (15-41); MEAN CELL VOLUME 97.6 fL CALC (80.0-100.0); MEAN CORPUSCULAR HGB CONC 31.8 g/dL CAL (32.0-36.0); MONO% 13.1 % (2-13); NEUT# 3.24 thou/uL (2.00-7.15); NEUT% 57.2 % (42-76); RED BLOOD COUNT 4.13 mill/uL (4.20-5.60); RED CELL DISTRI WIDTH 13.4 % (11.5-15.5)
[2024-03-30 18:25] LABS: CPK 56 u/l (30-135); MAGNESIUM 2.2 mg/dL (1.6-2.3)
[2024-03-30 18:26] LABS: ALBUMIN 4.4 g/dL (3.2-5.0); CREATININE 0.5 mg/dL (0.5-1.0); TOTAL PROTEIN 7.5 g/dL (6.3-8.2)
[2024-03-30 18:28] LABS: BILIRUBIN, TOTAL 0.3 mg/dL (0.02-1.3); POTASSIUM 4.1 mmol/l (3.5-5.1)
[2024-03-30 19:08] VITALS: BP 131/62
[2024-03-30 19:15] LABS: TSH, 3RD GENERATION 3.85 uIU/mL (0.47 - 4.68)
[2024-03-30 19:50] VITALS: BP 144/67
[2024-03-30 20:16] VITALS: BP 139/63
[2024-03-30 20:31] VITALS: BP 144/74
[2024-03-30 21:06] VITALS: BP 144/74
== END 2024-03-30 21:08 | disposition home or self-care (01) ==
LOC: ED 16:31
PROVIDERS: Emergency Medicine; Family Medicine
DX: M62.81 Muscle weakness (generalized) (principal); E11.9 Type 2 diabetes mellitus without complications; Z79.84 Long term (current) use of oral hypoglycemic drugs; Z20.822 Contact with and (suspected) exposure to COVID-19